=== PATIENT | female | born 2000 | race Caucasian/White ===

== ENCOUNTER 2019-01-25 01:03 | Emergency (ER) | payer OTHER, SELFPAY ==
--- NOTE | 2019-01-25 01:05 | ED.BACK ---
HPI - Back Pain/Injury General Chief Complaint: Back Pain/Injury Stated Complaint: back pain Time Seen by Provider: 01/25/19 01:04 Source: patient and family Mode of arrival: wheelchair Limitations: no limitations History of Present Illness HPI Narrative: 18-year-old female nonsmoker presents with severe midthoracic pain that started just prior to her arrival. She took 1 extra strength Tylenol without relief. The pain feels similar to when she had an injury on a trampoline 4 years ago which resulted in a T11 or T12 fracture. She was having intercourse and felt a recurrence of this pain. She is in significant discomfort with any motion and experiences some relieve with rest. She had no falls or direct injury to her back this evening. She denies any numbness, tingling or weakness. Patient is scheduled for elective tomorrow morning MD Complaint: back pain Duration: constant Similar Symptoms Previously: Yes Location: thoracic spine Severity: severe Quality: burning and sharp Radiation: none Relieving factors: immobilization Exacerbating factors: movement Context: other Associated symptoms: denies other symptoms Treatments prior to arrival: acetaminophen Related Data Previous Rx's Medication Instructions Recorded diazepam [Valium] 5 mg PO BID-QID PRN #10 tab 01/25/19 hydrocodone-acetaminophen 1 tab PO Q4-6H PRN #10 tab 01/25/19 ibuprofen 600 mg PO TID-QID PRN #20 tab 01/25/19 Allergies Allergy/AdvReac Type Severity Reaction Status Date / Time Penicillins Allergy Rash Verified 01/25/19 02:51 Review of Systems Constitutional Denies chills, Denies fever(s), Denies lethargy and Denies weakness Eyes Denies change in vision, Denies eye discharge, Denies irritation and Denies loss of vision ENT Ears, Nose, Mouth, and Throat: Denies change in voice, Denies neck pain and Denies sore throat Cardiovascular Denies chest pain, Denies irregular heart rhythm, Denies lightheadedness, Denies palpitations, Denies dyspnea, Denies dyspnea on exertion and Denies orthopnea Respiratory Denies cough, Denies dyspnea, Denies dyspnea on exertion and Denies wheezing Gastrointestinal Gastrointestinal: Denies abdominal pain, Denies change in bowel habits, Denies diarrhea, Denies nausea and Denies vomiting Genitourinary Denies hematuria, Denies flank pain, Denies urinary incontinence and Denies urinary urgency Musculoskeletal Reports back pain and Denies neck pain Integumentary/Breasts Denies pruritus, Denies erythema, Denies rash and Denies wounds Neurologic Denies confusion, Denies loss of vision and Denies weakness Psychiatric Denies anxiety, Denies confusion, Denies depression, Denies homicidal ideation and Denies suicidal ideation Endocrine Denies palpitations Hematologic/Lymphatic Denies easy bruising Allergic/Immunologic Denies wheezing Exam Narrative Exam Narrative: GENERAL: 18-year-old female, sitting very still, tearful and obviously in pain HEAD: Atraumatic. Normocephalic. No temporal or scalp tenderness. EYES: Pupils equal round and reactive. Extraocular motions intact. ENT: Nose without bleeding, purulent drainage or septal hematoma. Throat without erythema, tonsillar hypertrophy or exudate. Uvula midline. Airway patent. NECK:Supple, nontender, no meningeal signs. CARDIOVASCULAR: Regular rate and rhythm without murmurs RESPIRATORY: Clear to auscultation. Breath sounds equal bilaterally. No wheezes, rales, or rhonchi. GASTROINTESTINAL: Abdomen soft, non-tender, nondistended. No hepato-splenomegaly, or palpable masses. No guarding. EXTREMITIES: No clubbing, cyanosis, or edema. No joint tenderness, effusion, or edema noted. BACK: drier tender naphthalene in the midline of the lower thoracic but free of any obvious external abnormalities. Patient exam notes decreased range of motion and muscle spasm, but no CVA tenderness, or vertebral point tenderness. There are no symptoms of cauda equina such as saddle anesthesia, and decreased reflexes, decreased sensation or strength. NEURO: AOx3. SKIN: No rash or erythema. Initial Vital Signs Initial Vital Signs: Vital Signs Temperature 99.0 F 01/25/19 01:11 Pulse Rate 106 H 01/25/19 01:11 Respiratory Rate 22 01/25/19 01:11 Pulse Oximetry 100 01/25/19 01:11 Course Orders Ordered: Discontinued Medications Hydrocodone Bitart/Acetaminophen (Vicodin Prepack) 1 bottle MISC SEEINSTR ONE Stop: 01/25/19 03:14 Last Admin: 01/25/19 03:46 Dose: 1 bottle Diazepam (Valium) 5 mg PO NOW ONE Stop: 01/25/19 01:49 Last Admin: 01/25/19 01:51 Dose: 5 mg Hydromorphone HCl (Dilaudid) 1 mg IM NOW ONE Stop: 01/25/19 01:12 Last Admin: 01/25/19 01:21 Dose: 1 mg Vital Signs - 8 hr 01/25/19 01:11 Temperature 99.0 F Pulse Rate 106 H Respiratory Rate [address] [facility] - Back Pain/Injury Imaging Data Lumbar Xray: Radiologist's impression: [address] [address] XRay Report Signed Patient: Josselin SaucedoR#: [id number] : 2000Acct:[id number] Age/Sex: 18 / FDate of Service: 01/25/19 Loc: ED Accession Number: [id number] Procedure: XR thoracic spine 2V Ordering Provider: Terrence Ramos D.O. PROCEDURE: XR THORACIC SPINE 2V INDICATIONS: severe pain, hx fx TECHNIQUE: 3 views of the thoracic spine were acquired. COMPARISON: None. FINDINGS: Bones: No fractures or dislocations. No suspicious bony lesions. 12 pairs of ribs are noted, and appear intact where visualized. Soft tissues: No paravertebral stripe thickening. IMPRESSION: Thoracic spine without acute radiographic abnormalities. Dictated by: Marcio Cheng M.D. on 01/25/2019 at 8:07 Approved by: Marcio Cheng M.D. on 01/25/2019 at 8:08 [facility] Narrative Medical decision making narrative: Multiple etiologies of back pain considered including; Epidural abscess, cauda equina, mass occupying lesion, and other considered Discharge Plan Departure Patient Disposition: Home Clinical Impression: Thoracic back pain Qualifiers: Chronicity: acute Back pain laterality: midline Qualified Code(s): M54.6 - Pain in thoracic spine Discharge Date/Time: 01/25/19 04:07 Interventions: ED Discharge Assessment Last Done: 01/25/19 04:05 Instructions: DI for Muscle Strain, DI for Back Spasm Activity Restrictions/Additional Instructions: *You have been diagnosed with [acute severe thoracic back pain, no obvious fracture on x-ray and muscle spasm and/or disc problem or thought most likely] *What to do: *Take medications as directed: Prescriptions printed. Also, we discussed ebfb-tjr-[id number] medications such as ibuprofen for inflammation, CBD oil, lidocaine 4% patches *Follow up with your primary care provider in 2-3 days, call for an appointment. Let them know you were seen in the Emergency Department and that we ask that you be seen in follow up *Return to ER if you should have any new, worsening or concerning symptoms Prescriptions: New hydrocodone-acetaminophen 5-325 mg tablet 1 tab PO Q4-6H PRN (Reason: pain) Qty: 10 RF: 0 ibuprofen 600 mg tablet 600 mg PO TID-QID PRN (Reason: pain) Qty: 20 RF: 0 diazepam [Valium] 5 mg tablet 5 mg PO BID-QID PRN (Reason: muscle spasm) Qty: 10 RF: 0 Referrals: [facility] [Outside]
[2019-01-25 01:11] VITALS: PULSE 106; RESP 22; TEMP 37.2; O2SAT 100; BMI 25.6
[2019-01-25] MEDS: HYDROMORPHONE 1 MG INJ IM (01:21)
--- NOTE | 2019-01-25 01:42 | PC.NURSE ---
Pt still crying and trembling in pain after dilaudid shot. Ice applied to back and warm blankets.
--- NOTE | 2019-01-25 01:47 | DI.RAD.S_ITS ---
PROCEDURE: XR THORACIC SPINE 2V INDICATIONS: severe pain, hx fx TECHNIQUE: 3 views of the thoracic spine were acquired. COMPARISON: None. FINDINGS: Bones: No fractures or dislocations. No suspicious bony lesions. 12 pairs of ribs are noted, and appear intact where visualized. Soft tissues: No paravertebral stripe thickening. IMPRESSION: Thoracic spine without acute radiographic abnormalities. Dictated by: Marcio Cheng M.D. on 01/25/2019 at 8:07 Approved by: Marcio Cheng M.D. on 01/25/2019 at 8:08
[2019-01-25] MEDS: diazePAM 5 MG TABLET PO (01:51)
[2019-01-25] MEDS: HYDROCODONE/ACET 5/325 PREPACK 1 BOTTLE MISC (03:46)
[2019-01-25 04:05] VITALS: BP 117/81; PULSE 70; RESP 16; TEMP 36.4; O2SAT 100
== END 2019-01-25 04:07 | disposition home or self-care (01) ==
PROVIDERS: Emergency Provider Emergency Medicine
DX: M54.6 Pain in thoracic spine (principal)
CPT/HCPCS: 72070; 96372; 99283; J1170

== ENCOUNTER 2019-03-23 07:37 | Day surgery (SDC) | payer OTHER, SELFPAY ==
[2019-03-07 08:04] VITALS: BMI 25.0
--- NOTE | 2019-03-23 | PATH_ITS ---
[facility] Accession Number: [id number] . 01 Material submitted: . breast - LEFT BREAST 12 O'CLOCK LESION . 01 Clinical history: . SHORT STITCH SUPERIOR, LONG STITCH LATERAL, DOUBLE DEEP . 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 Background breast with focal secretory changes. Negative for atypia, carcinoma in situ, and invasive malignancy. MNT/03/25/2019 . 01 Electronically signed: . Alicia Smith MD, Pathologist NPI- [id number] . 01 Gross description: . Received: In formalin labeled left breast 12 o'clock lesion, short stitch superior, long stitch lateral, double deep. Specimen: Left partial mastectomy. Weight: 6 grams. Measurement: 2.3 cm anterior to posterior, 2.7 cm medial to lateral, and 1.9 cm superior to inferior. Skin ellipse: Absent. Wire: Absent. Margins: Oriented by surgeon with short superior suture, long lateral suture, double deep suture, and inked as follows: posterior=black; anterior=purple; superior=blue; inferior=green; medial=yellow; lateral=orange. Sliced: Medial to lateral into seven slices. Lesions: One. Description: Firm zhang-white with a smooth semi-translucent cut surface. Size: 2.7 x 2.2 x 1.7 cm. Slices involved: Slices #1-#7. Biopsy site: Absent. Distance to margins: 0.2 cm from the anterior margin, less than 0.1 cm from the posterior margin, less than 0.1 cm from the superior margin, 0.1 cm from the inferior margin, less than 0.1 cm from the medial margin, and less than 0.1 cm from the lateral margin. Other: No other nodules, masses or lesions are identified. Fixation time: The specimen was placed in formalin on 03/23/2019 with no time given. The approximate total fixation time is calculated to be 28 hours 30 minutes. Sections: A1-A2: Slice #1, medial end of specimen, perpendicular. A3: Slice #2. A4: Slice #3. A5: Slice #4. A6: Slice #5. A7: Slice #6. A8-A9: Slice #7, lateral end of specimen, perpendicular. Specimen entirely submitted. ([id number]) /MRV . 01 Microscopic: . 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 There is no evidence of atypia, carcinoma-in situ, or malignancy. . 01 Pathologist provided ICD-10: D24.2 . 01 CPT . [id number] Performed at: 01 [facility] [address] [place] [address] [address], [place], [place] [id number] MD Carlos Boyd MD Phone: [phone]
[2019-03-23 08:07] VITALS: BP 129/85; PULSE 93; RESP 17; TEMP 36.1; O2SAT 98; BMI 24.2
--- NOTE | 2019-03-23 08:56 | PM.HP.1 ---
History of Present Illness Date Patient Seen: 03/23/19 Time Patient Seen: 08:56 Chief complaint: [id number] Narrative: Patient seen and examined Unchanged from recent clinic note Plan for left upper breast excisional biopsy a palpable nodule Patient History Medical History (Updated 03/23/19 @ 07:57 by Jessica Lanier RN) Depression (Acute) Eczema (Acute) Left breast mass (Acute) Back pain (Acute) Surgical History (Updated 03/07/19 @ 12:16 by Irma Jerome RN) No history of previous surgery (Acute) Social History (Updated 02/28/19 @ 15:11 by Diana Jordan MA) marital status: household members: spouse Smoking Status: Never smoker alcohol intake: current substance use type: does not use Family & Social History Social History: household members spouse Tobacco & Substance use: Smoking Status Never smoker alcohol intake current Substance Use Type does not use Meds Home Medications Medication Instructions Recorded Confirmed Type cyclobenzaprine 10 mg PO DAILY 03/07/19 03/23/19 History ibuprofen 200 mg PO BID 03/07/19 03/23/19 History diazepam 5 mg PO BID-QID PRN 03/23/19 03/23/19 History hydrocodone-acetaminophen 1 tab PO Q4-6H PRN 03/23/19 03/23/19 History Allergies Allergy/AdvReac Type Severity Reaction Status Date / Time amoxicillin Allergy Unknown Rash Verified 03/23/19 07:55 Penicillins Allergy Rash Verified 03/23/19 07:55 nuts AdvReac Mild Vomiting Uncoded 03/23/19 07:55 prawns AdvReac Mild Nausea Uncoded 03/23/19 07:55 Exam Vital Signs (past 8 hours): - 03/23/19 08:07 Temperature 96.9 F L Pulse Rate 93 H Respiratory Rate 17 Blood Pressure 129/85 Pulse Oximetry 98 Oxygen Delivery Method Room Air
[2019-03-23] MEDS: CEFAZOLIN 2 GM/100 ML FROZ.PIGGY IV (09:05)
--- NOTE | 2019-03-23 09:31 | SUR.OPER ---
Supine on padded OR bed, head on pillow, arms secured on padded arm boards at <90 degrees abduction, legs uncrossed, safety belt at thigh, tape over blanket over lower legs.
[2019-03-23] MEDS: BUPIVACAINE 0.25% W/ EPI 30 ML VIAL INJ (09:42)
[2019-03-23 10:28] VITALS: BP 116/69; PULSE 97; RESP 23; TEMP 36.7; O2SAT 88
--- NOTE | 2019-03-23 10:34 | SUR.PHASEI ---
Error - hit wrong button on verbal order, anesthesia overrided,
--- NOTE | 2019-03-23 10:35 | PM.OP.1 ---
Operative Date/Time/Diagnoses Date of procedure: 03/23/19 Time of procedure: 10:35 Pre-op diagnosis: Palpable breast mass, left breast Post-op diagnosis: same Procedure & Clinicians Procedure: Excisional biopsy left breast Same procedure as scheduled: Yes Indications: 18-year-old woman without a family history of breast cancer presented to clinic with a palpable 2 x 2 cm mass at the 12 o'clock position 6 cm from the nipple on the left breast. Ultrasound evaluation had shown a likely benign mass consistent with a hemangioma. Patient was distressed by the mass and wanted it removed. Surgeon: Joao Arango Click Yes if Unassisted: Yes Anesthesia Type: General Operative Notes Findings: Palpable breast mass removed measuring approximately 2 x 2 cm Closure Type: primary Specimen(s): other (Upper left breast mass) Estimated Blood Loss (mL): 5 Procedure in detail: Patient was brought to the operating room, a time-out was completed. She was prepped and draped in the usual sterile fashion. The superior aspect of the areolar/breast skin border was carefully marked out. The palpable mass at the 12 o'clock position 6 cm from the nipple was easily identified the overlying skin was marked to make this location obvious. A curvilinear incision was made on the superior aspect of the areolar boundary. A thick flap was raised moving superiorly -this flap continued upwards until it was beyond the palpable mass. The retractors were removed externally the mass was repalpated underneath area that been previously marked. A finger the was then slipped underneath the breasts flap and directly palpated the lesion. With this finger continue to stay in place/continuing to sebastian the lesion circumferential dissection was carried out on the superior medial lateral and inferior aspects. This was performed using Bovie cautery -approximately a 5 mm margin was taken with the specimen.. Two Allis clamps were then used to graft the mass. With the clamps in place it was delivered out the skin incision and the posterior boundary was amputated with cautery. Small cavity was palpated no additional palpable mass was in the area, overlying skin was palpated and the index mass was absent. The specimen was then marked and sent to pathology: Short stitch superior, long stitch lateral, double stitch deep. Several small bleeders were cauterized. Hemostasis was confirmed. Local anesthetic was infiltrated into the wound and cavity. The area was then irrigated. Skin was then closed using a deep dermal layer of 3 0 Vicryl, as well as a running subcuticular stitch using monofilament absorbable 4- 0 suture. Steri-Strips were applied, followed by dressing Patient was extubated and brought to PACU without incident Complications: none Condition: stable Disposition: PACU Plan for aftercare: Follow-up in clinic
[2019-03-23] MEDS: FLUMAZENIL 0.5 MG/5 ML MDV 0.1 MG IV ×2 (10:47→11:01)
[2019-03-23] MEDS: LORazepam 2 MG/ML INJ 0.25 MG IV (10:47)
--- NOTE | 2019-03-23 10:49 | SUR.PHASEI ---
1042 Monitor showed resp in the teens, actual resp rapid, shallow, rate 80; reported to Dr. Beyer; said to watch her and that she will come check on patient. Verbal order for medication - see emar. Doesn't open eyes, but shook head no that she was not in pain. 1047 Dr. Beyer here, explained that med had not yet been given. 1052 HR 60, Dr. Beyer informed; lungs clear, See event records. Dr. Lemus here, multiple RNs, RT called
[2019-03-23 11:24] LABS: Hematocrit 37.9 % (36-46); Hemoglobin 12.8 g/dL (12.0-16.0); Mean Corpuscular HGB Conc 33.7 % (30-36); Mean Corpuscular Hemoglobin 29.5 PG (26-34); Mean Corpuscular Volume 87.4 fL (80-100); Platelet Count 292 X10^3/uL (150-400); Red Blood Cell Count 4.34 X10^6/uL (4.0-5.2); White Blood Cell Count 5.8 X10^3/uL (4.5-11.0)
[2019-03-23 11:35] LABS: Lactate (Lactic Acid) 3.8 mmol/L (0.7-2.1)
[2019-03-23 11:36] LABS: Alanine Aminotransferase 18 IU/L (9-52); Albumin 4.5 g/dL (3.5-5.0); Albumin Globulin Ratio 1.6 (1.0-2.8); Alkaline Phosphatase 57 U/L (38-126); Aspartate Aminotransferase 15 IU/L (14-36); BUN Creatinine Ratio 16.7 (6-22); Bilirubin Total 0.7 mg/dL (0.2-1.3); Blood Urea Nitrogen 10 mg/dL (7-17); Calcium 9.4 mg/dL (8.4-10.2); Carbon Dioxide 19 mmol/L (22-32); Chloride 105 mmol/L (98-107); Estimated Glomerular Filt Rate > 60.0 mL/min (>60); Globulin 2.8 g/dL (1.7-4.1); Glucose 139 mg/dL (70-100); HEMOLYSIS < 15 (0-50); Potassium 3.6 mmol/L (3.4-5.1); Sodium 140 mmol/L (137-145); Total Protein 7.3 g/dL (6.3-8.2)
[2019-03-23 11:44] VITALS: PULSE 97; RESP 16; O2SAT 100
--- NOTE | 2019-03-23 11:47 | RT ---
got called by the RN at recovery unit, patient was in resp distress, Marta bagged the patient due to patient lack of resp effort. once resp rate retunred we putted pt on 6L simple mask. pt was stable before leaving.
[2019-03-23 12:02] LABS: Neutrophils Absolute Manual 2552 /uL (3000-5900); Total Cells Counted 100
--- NOTE | 2019-03-23 12:11 | SUR.PHASEI ---
Addendum entered by Jessica Lanier R.N. 03/23/19 14:03: Time 1205 Original Note: Patient sitting up, oriented to time and place, spouse at bedside. Talking appropriately about the surgery. Tolerating PO well. VSS, resp rate WNL at 16. Skin warm and dry, resp unlabored. Breast dressing remains CDI. SCDs turned off soon after arrival to PACU as she was pulling at them, restless, moving freely subconsciously.
[2019-03-23 12:13] LABS: RBC Morphology Normal Morphology
[2019-03-23] MEDS: OXYCODONE/ACETAMINOPHEN 5/325 TABLET 1 TAB PO ×2 (12:34→13:57)
[2019-03-23 12:41] VITALS: BP 121/77; PULSE 84; RESP 16; TEMP 36.7; O2SAT 100
--- NOTE | 2019-03-23 12:46 | SUR.PHASEII ---
Addendum entered by Chasidy Traore R.N. 03/23/19 14:43: After evaluation with Ken Beyer and Conchita, pt was cleared for discharge to home. D/C instructions reviewed with pt and spouse. Pt dressed independently and was escorted by [facility] to ED entrance by TREY March. Original Note: pt arrived in Phase II in guarded condition after close to 60 minutes of being unable to arouse after her surgical procedure. Pt was given flumazenil in an attempt to wake her and so as a result of this, pt will remain under observation for an additional 2 hours per protocol. Pulse oximeter and vitals are also being monitored q15 minutes. Pt rated her pain 5/10 to left breast surgical site with verbal order from Dr Beyer, pt was given one (1) percocet for relief. She has also taken without issue applesauce and cranberry juice.
[2019-03-23 13:19] LABS: Reflexed Lactate in 2 Hours Y
--- NOTE | 2019-03-23 13:40 | SUR.PHASEI ---
Addendum entered by Jessica Lanier R.N. 03/23/19 13:45: Savita gave medication only per anesthesia while anesthesia was bagging the patient; no other care provided by her Original Note: 1100 late entry: Other staff who were in attendance during the course of care include RT (2 female staff), Boyd costello-Emmie frazier N walked through and did not provide care.
--- NOTE | 2019-03-23 13:57 | SUR.PHASEI ---
7980 Dr. Beyer here to talk to patient and her spouse. Gave verbal order for repeat PO medication - See emar. Pain 11/14
[2019-03-23 14:02] LABS: Lactate 2HR (Lactic Acid Rflx) 1.7 mmol/L (0.7-2.1)
--- NOTE | 2019-03-23 14:05 | SUR.PHASEI ---
Approx 1035-40 Patient shaking, pulling at oxygen tubing and SCDs. SCDs dc'd as they were agitating her. Patient shivering, Warm blankets given, prepared to give demerol per Dr. Beyer, but shivering subsided prior to Rx being given. See additional notes and code blue report for event. Blood pressure was stable throughout the incident, however resp rate was as high as 80. Patient had minimal response to voice initially, progressing to responsive only to pin prick on her toes by the surgeon and hard sternal rub by RT.
--- NOTE | 2019-03-23 14:17 | SUR.PHASEI ---
1222 To [facility]. VS stable, awake, oriented, asking appropriate questions, talking with spouse. Report updated to Neelima Traore RN. Patient put on continuous pulse oximeter. Juice, applesauce, and call light given.
--- NOTE | 2019-03-23 14:21 | SUR.PHASEI ---
Additional notes: 1130 Dr. Beyer here after speaking to the patient's . Pt. eyelids fluttering, does not open eye in response to voice. Pt. on O2 at 10 L simple mask. Resp rate within normal range. 1135 Dr. Ding sent from [facility] back to the waiting room. 1135 Dr. Arango here, performing neuro eval, response to painful stimuli.
[2019-03-23 14:24] VITALS: BP 113/78; PULSE 78; RESP 16; TEMP 36.9; O2SAT 100
== END 2019-03-23 14:47 | disposition home or self-care (01) ==
PROVIDERS: Anesthesiology; Visit Provider Surgery
PROC: (CPT 19301; principal; 2019-03-23 08:45)
DX: D24.2 Benign neoplasm of left breast (principal)
CPT/HCPCS: 19120; 36415; 71045; 80053; 83605; 85025; 88305; J0690; J1100; J2060; J2250; J2405; J2704; J3010